=== PATIENT | male | born 1960 | race Two or more races ===

== ENCOUNTER 2017-10-02 12:00 | Emergency (ER) | payer OTHER ==
[~2017-10-02] VITALS: Ht 160 cm; Wt 59.0 kg
[2017-10-02] MEDS ORDERED: DICLOFENAC SODI50 MG PO (14:32)
[2017-10-02] MEDS ORDERED: MILLIPRED5 MG PO (14:32)
== END 2017-10-02 14:51 | disposition home or self-care (01) ==
LOC: ER 12:00
DX: M25.512 Pain in left shoulder (principal)